=== PATIENT | female | born 1990 | race Caucasian/White ===

== ENCOUNTER 2023-03-15 11:13 | Emergency (ER) | payer MEDICAID, SELFPAY ==
[2023-03-15 11:24] VITALS: BP 122/78; PULSE 73; RESP 18; TEMP 37.2; O2SAT 99
--- NOTE | 2023-03-15 12:05 | W.ED.GENAD ---
Discharge Plan Disposition Patient Disposition: Home Condition: Stable Discharge Details Clinical Impression: Left ankle sprain, Sprain of left foot, Abrasion of left leg Primary Care Provider: Rober Kate ED Provider: Carolyn Avendaño Home Meds and New Rx's Prescriptions: Continued melatonin 10 mg capsule 10 mg PO HS PRN Patient Comments: Takes five 20 mg gummies PRN Vraylar 3 mg capsule 3 mg PO DAILY Qty: 90 0RF ProAir RespiClick 90 mcg/actuation aerosol powdr breath activated 2 inh inhalation Q6H PRN (Reason: shortness of breath or wheezing) Qty: 1 3RF gabapentin 100 mg capsule See Rx Instructions PO TID Qty: 360 3RF Rx Instructions: t1 tab QAM, Qnoon, t2 tabs QHS orally three times a day; Discharge Instructions Instructions: Ankle Sprain (ED), Foot Sprain (ED), Abrasion (ED) Additional Instructions: Your x-rays today are reassuring and show no evidence of acute fracture or dislocation. Keep wound clean and dry. Cover wound with bandage if risk of contamination or friction from clothes and at bedtime. Otherwise you can keep the wound open to air if resting at home to allow edges to dry and heal. You can keep the Ke wrap in place on your left ankle if you continue to have pain and swelling. Use the crutches as needed to help with ambulation and start to bear weight as tolerated. Follow-up with your primary care doctor in 1 week and for referral to orthopedics if your symptoms do not improve or worsen. Return to the emergency department with any worsening or new concerning symptoms. Referrals: Eduard Matthew MD [ [facility] STAFF PHYSICIAN] - Discharge Data Discharge Physician: Carolyn Avendaño Medical Decision Making 33-year-old female presents with left leg injury after tripped on a tote hitting both knees, scraping her left leg and twisting her left ankle. Tetanus not up-to-date. Denies any other injuries. Denies knee pain. Patient appears comfortable and nontoxic. She has a 6 x 2 cm superficial abrasion to her left anterior mid leg. No active bleeding. No deep wounds noted. She has tenderness to palpation to the left medial and lateral malleolus with mild edema but no deformity noted. She has tenderness to palpation to the left heel. Neurovascular intact. No deformities noted to the left lower extremity. Patient referred for x-rays which were negative. Due to location of her left anterior mid leg wound, will hold on walking boot for concern for friction with worsening of wound and potential risk for infection. Her leg wound was irrigated and covered with antibiotic ointment and nonadherent dressing. The ankle stirrup splint will also be in contact with the leg wound so we will place a left ankle Ke wrap and provide crutches. Advised on the importance of rest, ice and elevation and proper wound care. Advised to follow-up with the primary care doctor for reevaluation and with orthopedics if symptoms do not improve or worsen. Usual and customary return precautions given prior to discharge. Medical Records Medical records reviewed: Yes I reviewed the patient's medical records. Imaging Data Radiologic Study: Radiologist's impression: ?XR TIB/FIB LT CLINICAL HISTORY: ? scraped L mid leg, r/o fx. ? TECHNIQUE:? 2D digital imaging was performed. COMPARISON:? No exams were available for comparison FINDINGS: Two views: No evidence of fracture in the tibia and fibula.? Subtle deformity just below the mid aspect of the fibula may be site of prior healed fracture. Tibial plateau appears unremarkable. IMPRESSION: No acute fractures evident. XR ANKLE LT COMPLETE CLINICAL HISTORY: ? twisted L ankle, r/o fx. ? TECHNIQUE:? 2D digital imaging was performed. COMPARISON:? No exams were available for comparison FINDINGS: 3 views No evidence of acute fracture or widening of the ankle mortise.? Talar dome unremarkable.? Bone density normal.? No degenerative changes nor osseous lesions.? No soft tissue swelling. IMPRESSION: No significant osseous findings. XR FOOT LT COMPLETE CLINICAL HISTORY: ? s/p left foot, r/o fx. ? TECHNIQUE:? 2D digital imaging was performed. COMPARISON:? No exams were available for comparison FINDINGS: 3 views No evidence of acute fracture or diastasis of the Lisfranc joint.? Great toe metatarsophalangeal joint appears unremarkable.? Benign bone islands are? noted in the head-neck of the 2nd metatarsal and head of the 5th metatarsal.? No concerning osseous lesions.? No radiopaque foreign body.? Bone density is normal. IMPRESSION: No significant osseous findings. HPI General Mode of arrival: ambulatory. Date/Time Provider Initiated Documentation: 03/15/23 11:38. Limitations to Documentation: no limitations. Information obtained by: patient. HPI Narrative: Patient is a 33-year-old female who presents with left leg abrasion and left ankle and foot pain after tripped and fell on a tote outside. Patient states she tripped and scraped her leg on the tote and then twisted her ankle while wearing her work boots. She states she hit both of her knees as well but states they do not hurt and has no pain in her knees with walking. She has not taken any medication for pain. She states her tetanus is not up-to-date. She denies head injury or any other injuries. Related Data Home Medications Medication Instructions Recorded Confirmed albuterol sulfate 90 mcg/actuation 2 inh inhalation Q6H PRN shortness 02/28/23 03/15/23 breath activated powder inhaler of breath or wheezing #1 ea (ProAir RespiClick) cariprazine 3 mg capsule (Vraylar) 3 mg PO DAILY #90 caps 02/28/23 03/15/23 gabapentin 100 mg capsule See Rx Instructions PO TID #360 02/28/23 03/15/23 caps melatonin 10 mg capsule 10 mg PO HS PRN 02/28/23 03/15/23 Previous Rx's Medication Instructions Recorded albuterol sulfate 90 mcg/actuation 2 inh inhalation Q6H PRN shortness 02/28/23 breath activated powder inhaler of breath or wheezing #1 ea (ProAir RespiClick) cariprazine 3 mg capsule (Vraylar) 3 mg PO DAILY #90 caps 02/28/23 gabapentin 100 mg capsule See Rx Instructions PO TID #360 02/28/23 caps Allergies Allergy/AdvReac Type Severity Reaction Status Date / Time codeine [Codeine] Allergy Mild Hives Unverified 03/15/23 11:23 nicotine [From Nicoderm CQ] Allergy Mild Skin Unverified 03/15/23 11:23 peeling tramadol Allergy Mild Hives Unverified 03/15/23 11:23 diphenhydramine HCl AdvReac Mild Unverified 03/15/23 11:23 [From Benadryl] Sulfa (Sulfonamide AdvReac Mild Unverified 03/15/23 11:23 Antibiotics) Latuda AdvReac Severe Uncoded 03/15/23 11:23 General Stated Complaint: Orthopedic CHRISTIANO: 4 Review of Systems All systems reviewed & are unremarkable except as noted in HPI and below Constitutional Constitutional: Reports as per HPI, Denies chills and Denies fever(s) Eyes Eyes: Denies blurry vision ENT Ears, Nose, Mouth, and Throat: Denies dizziness, Denies sore throat and Denies throat swelling Cardiovascular Cardiovascular: Denies chest pain and Denies dyspnea Respiratory Respiratory: Denies cough and Denies dyspnea Gastrointestinal Gastrointestinal: Denies abdominal pain, Denies diarrhea and Denies vomiting Genitourinary Genitourinary: Denies hematuria and Denies dysuria Musculoskeletal Musculoskeletal: Denies back pain and Denies numbness Comments: Left leg, ankle and foot injury. Integumentary/Breasts Skin/Breast: Denies lesions and Denies rash Neurologic Neurologic: Denies dizziness, Denies localized weakness and Denies numbness Allergic/Immunologic Allergic/Immunologic: Denies throat swelling PFSH All Active Problems Left ankle sprain (Acute) Sprain of left foot (Acute) Abrasion of left leg (Acute) Smoker (Acute) Medical History (Updated 03/15/23 @ 13:20 by Carolyn Avendaño DO) Anxiety Asthma Gout Insomnia Schizophrenia Surgical History (Updated 03/15/23 @ 12:06 by Carolyn Avendaño DO) History of bilateral tubal ligation History of section History of hysterectomy Hx of tonsillectomy Social History (Updated 02/25/23 @ 13:09 by Eufemia Chawla) Smoking/Tobacco Use Status: Current every day Tobacco: How many years used: 17 Smokeless tobacco user: other Quit status: has quit before Smoking risk assessment performed?: Yes Drug use: Never Substance use type: marijuana Adopted: Yes Caregiver/Support person: No Foster care: No Household members: friend(s) Housing: apartment Number of Children: 1 number of grandchildren: 0 Communication Needs: None Education Level: high school Do you need help understanding health information?: Rarely 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 Pets and animals: Yes (2) Pets and animals: dog(s) Sexually active: Yes Do you think of yourself as: bisexual Current gender identity: female What is your relationship status?: never How often do you talk on the phone with friends or family?: three or more times per week How often do you get together with friends or relatives?: three or more times per week Do you belong to any clubs or organized social groups?: no Panel score (0-1 are the most socially isolated patients): 1 What type of physical activity do you participate in: none Tiffany/Faith: None Seatbelt use: always Helmet use: Yes Helmet use: sometimes Drive intox or ride w/intox warehouse driver: No Exam Const General: cooperative and no acute distress Orientation: alert, awake and oriented x3 HENMT Head: normal to inspection Mouth: oral mucosae normal Eyes General: appearance normal, both eyes and all related structures Neck Neck: normal visual inspection Resp Effort & Inspection: normal respiratory effort and able to speak in complete sentences Cardio Rate: regular rate Skin General skin exam: no rashes or lesions noted Neuro General: patient alert, patient awake and patient oriented x3 Motor: muscle tone normal throughout Extrem Upper/lower leg/hip images: 1. 6 x 2 cm superficial abrasion noted to anterior mid lower leg. There is mild surrounding edema. Other: Mild edema and tenderness to palpation to left lateral malleolus and the anterior, inferior and posterior aspect. Tenderness to palpation to the anterior and inferior aspect of the left medial malleolus. No tenderness to palpation to left fifth metatarsal. There is minimal tenderness to palpation of the left heel. Left DP/PT pulses intact. No open wounds or deformity noted. No pain with range of motion or tenderness to palpation of the left knee. No pain with range of motion of the right knee. Psych Appearance: grossly normal Affect: normal affect Course Vital Signs Vital signs: Vital Signs Temperature 98.9 F 03/15/23 11:24 Pulse 73 03/15/23 11:24 Respiratory Rate 18 03/15/23 11:24 Blood Pressure 122/78 03/15/23 11:24 Pulse Oximetry 99 03/15/23 11:24 Temperature 98.9 F 03/15/23 11:24 Temperature Source Oral 03/15/23 11:24 Pulse 73 03/15/23 11:24 Respiratory Rate 18 03/15/23 11:24 Respiratory Effort Normal, Non-Labored 03/15/23 11:22 Blood Pressure 122/78 03/15/23 11:24 Pulse Oximetry 99 03/15/23 11:24 Oxygen Delivery Method Room Air 03/15/23 11:24 Oxygen Flow Rate 0 03/15/23 11:24 PAWSS Have you Been Recently Intoxicated or Drunk Within the Last 30 days?: No Have you Ever Experienced Previous Episodes of Alcohol Withdrawal?: No Have you ever Experienced Withdrawal Seizures?: No Have you ever Experienced Delirium Tremens(DT)s?: No Have you ever undergone Alcohol Rehabilitation Treatment (i.e, inpt ot outpatient treatment programs)?: No Have you ever Experienced Blackouts?: No Have you ever Combined Alcohol with other Downers within the last 90 days?: No Have you ever Combined Alcohol with any other Substance of Abuse during the last 90 days?: No Positive Blood Alcohol level on Presentation? [PCS.BAL]: No Evidence of Increased Autonomic Activity (i.e. HR>120, tremor, sweating, agitation, nausea)?: No Result: 0
[2023-03-15] MEDS: Ibuprofen 600 MG TAB PO (12:17)
--- NOTE | 2023-03-15 12:36 | DI.RAD_ITS ---
Exam(s) XR TIB/FIB LT EXAM: XR TIB/FIB LT CLINICAL HISTORY: scraped L mid leg, r/o fx. TECHNIQUE: 2D digital imaging was performed. COMPARISON: No exams were available for comparison FINDINGS: Two views: No evidence of fracture in the tibia and fibula. Subtle deformity just below the mid aspect of the f ibula may be site of prior healed fracture. Tibial plateau appears unremarkable. IMPRESSION: No acute fractures evident. DATA REPOSITORY: RADIATION DOSE DELIVERED:
--- NOTE | 2023-03-15 12:36 | DI.RAD_ITS ---
Exam(s) XR ANKLE LT COMPLETE EXAM: XR ANKLE LT COMPLETE CLINICAL HISTORY: twisted L ankle, r/o fx. TECHNIQUE: 2D digital imaging was performed. COMPARISON: No exams were available for comparison FINDINGS: 3 views No evidence of acute fracture or widening of the ankle mortise. Talar dome unremarkable. Bone densi ty normal. No degenerative changes nor osseous lesions. No soft tissue swelling. IMPRESSION: No significant osseous findings. DATA REPOSITORY: RADIATION DOSE DELIVERED:
--- NOTE | 2023-03-15 12:36 | DI.RAD_ITS ---
Exam(s) XR FOOT LT COMPLETE EXAM: XR FOOT LT COMPLETE CLINICAL HISTORY: s/p left foot, r/o fx. TECHNIQUE: 2D digital imaging was performed. COMPARISON: No exams were available for comparison FINDINGS: 3 views No evidence of acute fracture or diastasis of the Lisfranc joint. Great toe metatarsophalangeal join t appears unremarkable. Benign bone islands are noted in the head-neck of the 2nd metatarsal and he ad of the 5th metatarsal. No concerning osseous lesions. No radiopaque foreign body. Bone density is normal. IMPRESSION: No significant osseous findings. DATA REPOSITORY: RADIATION DOSE DELIVERED:
--- NOTE | 2023-03-16 18:01 | NUR.NOTE ---
Nursing Note: Accessed chart for [facility] billing purposes.
== END 2023-03-15 13:26 | disposition home or self-care (01) ==
PROVIDERS: Emergency Provider Physician Assistant; PCP Family Medicine
DX: S93.402A Sprain of unspecified ligament of left ankle, initial encounter (principal); S93.602A Unspecified sprain of left foot, initial encounter; S80.812A Abrasion, left lower leg, initial encounter; W01.0XXA Fall on same level from slipping, tripping and stumbling without subsequent striking against object, initial encounter
CPT/HCPCS: 90471; 99284; 73590; 73610; 73630

== ENCOUNTER 2023-06-09 04:36 | Outpatient (CLI) | payer MEDICAID, SELFPAY ==
[2023-06-09] MEDS: Albuterol HFA 18 GM 200 PUFF INH IH (15:25)
[2023-06-09] MEDS: Inhaler, Assist Device 1 EACH MC (15:25)
[2023-06-09] MEDS: Methacholine 100 MG VIAL IH (15:25)
--- NOTE | 2023-06-10 15:31 | W.PFT ---
Date of service: 06/09/23 Time of Service: 13:00 Pulmonary Function Test Result Indications: Asthma Interpretation Spirometry: There is no baseline airflow limitation. There was a 21% decreased in FEV1% with administration of 2mg/mL methacholine. Lung Volumes: There is hyperinflation. Diffusion Capacity: Normal diffusion Airway Pressure: Normal airways resistance Impression Positive methacholine challenge with hyperinflation. Clinical Correlation therefore is recommended.
== END 2023-06-09 04:37 | disposition home or self-care (01) ==
LOC: RT 04:36
PROVIDERS: PCP Family Medicine; Visit Provider Family Medicine
DX: J45.909 Unspecified asthma, uncomplicated (principal)
CPT/HCPCS: 94060; 94070; 94726; 94729; 94010; J7674

== ENCOUNTER 2023-12-29 09:56 | Outpatient (CLI) | payer MEDICAID, SELFPAY ==
[2023-12-29 09:58] LABS: ESR 10 mm/hr (0-20)
[2023-12-29 10:56] LABS: Lithium < 0.2 mmol/l (0.6-1.2)
[2023-12-29 11:00] LABS: TSH (W/Ref FT4) 1.41 uIU/mL (0.36-3.74); Uric Acid 4.9 mg/dL (2.6-6.0)
[2023-12-29 11:02] LABS: C-Reactive Protein < 0.50 mg/dL (<or=0.5)
== END 2023-12-29 09:57 | disposition home or self-care (01) ==
LOC: LBO 09:57
PROVIDERS: PCP Family Medicine; Visit Provider Family Medicine
DX: M10.9 Gout, unspecified (principal); F31.81 Bipolar II disorder
CPT/HCPCS: 36415; 85652; 80178; 84443; 84550; 86140

== ENCOUNTER 2024-01-26 10:07 | Outpatient (REF) | payer MEDICAID, SELFPAY | END 2024-01-26 10:08 | disposition home or self-care (01) | LOC: LBN 10:07 | PROVIDERS: PCP Family Medicine; Visit Provider Family Medicine | DX: R82.998 Other abnormal findings in urine (principal); R10.9 Unspecified abdominal pain | CPT/HCPCS: 87086 ==

== ENCOUNTER → 2024-02-09 02:56 | Outpatient (CLI) | payer MEDICAID, SELFPAY ==
--- NOTE | 2024-02-09 07:00 | DI.CT_ITS ---
Exam(s) CT RENAL COLIC WO EXAM: CT RENAL COLIC WO CLINICAL HISTORY: H/o renal stones, hematuria currently,rt flank pain,r10.9. TECHNIQUE: Imaging Protocol: Axial computed tomography images with coronal and sagittal reformatted images were created and reviewed. COMPARISON: No exams were available for comparison FINDINGS: ABDOMEN: Lung Bases: Normal where visualized. Liver: There is fatty infiltration of the liver. The liver is enlarged. No measurable mass. Gallbladder and biliary tract: Cholelithiasis. No biliary ductal dilatation. No pericholecystic flu id or gallbladder wall thickening is apparent. Pancreas: Normal density, no abnormal calcifications or inflammatory process. Spleen: Normal. Kidneys: Normal size, contour and axis.No radiodense stones or obstructive uropathy. No masses seen. Adrenal glands: No mass is seen. Lymph nodes: Within normal limits. Abdominal Aorta: Abdominal portion non-dilated. PELVIS: Bladder:Symmetric distention, no gross wall thickening. Bowel: No obstruction or bowel wall thickening. No evidence of appendicitis. Peritoneal cavity: No ascites, collection or mesenteric inflammatory response. No free air. Reproductive organs: Status post hysterectomy. Bones: Within normal limits. There is mild sclerosis at the right sacroiliac joint which may reflect sacroiliitis. Soft Tissues: Within normal limits. IMPRESSION: 1. No evidence of nephrolithiasis or obstructive uropathy. 2. Cholelithiasis. No biliary ductal dilatation. 3. Fatty infiltration of the liver and hepatomegaly. RADIATION DOSE DELIVERED: Total DLP DATA REPOSITORY: All CT scans at this facility are submitted to the National Radiology Data Registry (NRDR) Dose Index Registry (DIR) with the [employer] (A[employer]). RADIATION OPTIMIZATION: All CT scans at this facility use at least one of these dose optimization te chniques: automated exposure control; mA and/or kV adjustment per patient size (includes targeted exa ms where dose is matched to clinical indication); or iterative reconstruction.
== END ==
PROVIDERS: PCP Family Medicine; Visit Provider Family Medicine
DX: R10.31 Right lower quadrant pain (principal); R31.9 Hematuria, unspecified; K76.0 Fatty (change of) liver, not elsewhere classified; R16.0 Hepatomegaly, not elsewhere classified; K80.20 Calculus of gallbladder without cholecystitis without obstruction; Z87.442 Personal history of urinary calculi
CPT/HCPCS: 74176

== ENCOUNTER 2024-03-01 04:50 | Outpatient (CLI) | payer MEDICAID, SELFPAY ==
[2024-03-01 13:43] LABS: ALT 23 U/L (14-59); AST 15 U/L (15-37); Albumin 4.2 g/dL (3.4-5.0); Alkaline Phosphatase 141 U/L (46-116); Anion Gap 12.6 mmol/L (3-11); BUN 10 mg/dL (7-18); Bilirubin, Total 0.5 mg/dL (0.2-1.0); CO2 22.4 mmol/L (21.0-32.0); CREATININE 0.6 mg/dL (0.55-1.02); Calcium 9.2 mg/dL (8.5-10.1); Chloride 104 mmol/L (98-107); Estimated GFR 119.97 (mL/min/1.73m2); Glucose 100 mg/dL (74-106); Potassium 3.7 mmol/L (3.5-5.1); Sodium 139 mmol/L (136-145); Total Protein 7.6 g/dL (6.4-8.2)
[2024-03-02 00:15] LABS: HBs Antibody, Qual Positive (See Note); HBs Antibody, Quant 40.5 mIU/mL (See Note); Hepatitis B Core Antibody Negative (Negative); Hepatitis B surface Ag Negative (Negative); Hepatitis C Ab w Rflx HCV PCR Negative (Negative)
[2024-03-02 14:29] LABS: ANA Interpretation Negative (Negative)
[2024-03-03 12:54] LABS: Smooth Muscle Ab Screen Negative (Negative)
[2024-03-03 14:27] LABS: Mitochondrial Ab, M2 <0.1 U
[2024-03-04 13:34] LABS: Ceruloplasmin 30.5 mg/dL
== END 2024-03-01 04:51 | disposition home or self-care (01) ==
LOC: LBO 04:51
PROVIDERS: PCP Family Medicine; Referring Provider Family Medicine; Visit Provider Family Medicine
DX: K76.0 Fatty (change of) liver, not elsewhere classified (principal)
CPT/HCPCS: 36415; 80053; 82390; 83516; 86704; 86706; 86803; 87340; 86038; 86255

== ENCOUNTER 2024-04-08 11:14 | Emergency (ER) | payer MEDICAID, SELFPAY ==
[2024-04-08 11:21] VITALS: BP 101/59; PULSE 93; RESP 18; TEMP 37.1; O2SAT 97
--- NOTE | 2024-04-08 13:00 | DI.CT_ITS ---
Exam(s) CT ABDOMEN PELVIS W EXAM: CT ABDOMEN PELVIS W CLINICAL HISTORY: fever abd pain. TECHNIQUE: Imaging Protocol: Axial computed tomography images with coronal and sagittal reformatted images were created and reviewed CONTRAST MATERIAL: Intravenous: Omnipaque 350 Contrast volume:100 ml Oral: no COMPARISON: CT CT RENAL COLIC WO from 02/09/2024 FINDINGS: ABDOMEN and PELVIS: Lung Bases: No acute findings. Liver: Normal density. No suspicious mass. Gallbladder and biliary tract: Layering stones bladder. No gallbladder wall thickening or abnormal d istension. No biliary dilation. Pancreas: Normal density. No abnormal calcifications or inflammatory process. No evidence of mass. Spleen: Normal. Kidneys: Normal size, contour and axis. No radiodense stones. No obstructive uropathy. No suspicious masses seen. Adrenal glands: No masses seen. Vasculature: Abdominal aorta non-dilated. Soft tissues: Unremarkable. Bladder: Nearly empty P no gross wall thickening. No calculi.No focal mass. Bowel: No obstruction. No bowel wall thickening. Appendix normal. Peritoneal cavity: No ascites. No focal collection. No mesenteric inflammatory response. Bones: Unremarkable for age. Reproductive organs: Status post hysterectomy. Ovaries unremarkable. Lymph nodes: No pathologically enlarged lymph nodes. IMPRESSION:: Cholelithiasis. No evidence of acute cholecystitis. No acute abnormality. RADIATION DOSE DELIVERED: Total DLP DATA REPOSITORY: All CT scans at this facility are submitted to the National Radiology Data Registry (NRDR) Dose Index Registry (DIR) with the [employer] (ACR). RADIATION OPTIMIZATION: All CT scans at this facility use at least one of these dose optimization te chniques: automated exposure control; mA and/or kV adjustment per patient size (includes targeted exa ms where dose is matched to clinical indication); or iterative reconstruction.
[2024-04-08 13:36] VITALS: BP 124/59; PULSE 98; RESP 18; TEMP 38.3; O2SAT 99
[2024-04-08] MEDS: Ketorolac 15 MG/ML VIAL IVP (13:40)
[2024-04-08] MEDS: Normal Saline 1,000 ML 1000 ML IV (13:40)
[2024-04-08 13:43] LABS: Abs Immature Grans 0.07 10^3/uL (0.0-0.06); Absolute Basophil Count 0.04 10^3/uL (0.0-0.2); Absolute Eosinophil Count 0.04 10^3/uL (0.0-0.7); Absolute Lymphocyte Count 0.48 10^3/uL (1.2-3.4); Absolute Monocyte Count 1.06 10^3/uL (0.1-0.8); Basophils % 0.3 %; Eosinophils % 0.3 %; HGB 15.1 g/dL (11.2-15.7); Immature Grans % 0.6 %; Lymphocytes % 4.1 %; MCH 31.9 pg (27.0-33.0); MCHC 34.3 % (32.0-36.0); MCV 93 fL (80-95); MPV 9.8 fL (8.0-11.0); Neutrophils % 85.7 %; Platelet Count 244 10^3/uL (130-400); RBC 4.73 10^6/uL (3.93-5.22); RDW 11.8 % (11.7-14.6); RDW-SD 40.8 fL; WBC 11.74 10^3/uL (4.4-10.8)
[2024-04-08 13:44] LABS: Absolute Neutrophil Count 10.06 10^3/uL (1.2-6.7); Bilirubin Negative (Negative); Blood Moderate (Negative); Clarity Clear (Clear); Glucose Negative (Negative); Ketones Negative (Negative); Leukocyte Esterase Negative (Negative); Nitrite Negative (Negative); Specific Gravity >= 1.030 (1.005-1.025); Urobilinogen 0.2 mg/dL (Up to 0.2); pH 5.5 (5-8)
[2024-04-08 13:54] LABS: Bacteria Rare HPF (Negative); C & S Indicated? No; Casts Negative LPF (Negative); Crystals Negative HPF (Negative); Epithelial Cells Many HPF (Negative); Mucus Heavy (Negative); WBC 0-2 HPF (0-5)
[2024-04-08 13:58] LABS: ALT 21 U/L (14-59); AST 13 U/L (15-37); Albumin 4.1 g/dL (3.4-5.0); Alkaline Phosphatase 147 U/L (46-116); Anion Gap 10.9 mmol/L (3-11); BUN 11 mg/dL (7-18); Bilirubin, Total 0.4 mg/dL (0.2-1.0); CO2 26.1 mmol/L (21.0-32.0); CREATININE 0.8 mg/dL (0.55-1.02); Calcium 8.7 mg/dL (8.5-10.1); Chloride 101 mmol/L (98-107); Estimated GFR 98.48 (mL/min/1.73m2); Glucose 108 mg/dL (74-106); Lipase 20 U/L (16-77); Potassium 3.9 mmol/L (3.5-5.1); Sodium 138 mmol/L (136-145); Total Protein 7.6 g/dL (6.4-8.2)
[2024-04-08] MEDS: Normal Saline - Diluent 50 ML VIAL IJ (14:30)
[2024-04-08] MEDS: Omnipaque 350 MG/ML 100 ML BTL IJ (14:31)
[2024-04-08 14:33] LABS: Influenza A PCR Negative (Negative); Influenza B PCR Negative (Negative); RSV PCR Negative (Negative)
[2024-04-08 14:44] LABS: Source Nasopharynx
[2024-04-08 14:45] LABS: COVID-19 PCR Positive (Negative)
--- NOTE | 2024-04-08 15:01 | ED.GENADUL_ITS ---
Discharge Plan Disposition Patient Disposition: Home Discharge Details Clinical Impression: COVID, Gallstones Primary Care Provider: Rober Kate ED Provider: Tomasz Dc Home Meds and New Rx's Prescriptions: Continued quetiapine 50 mg tablet 50 mg PO QHS Qty: 90 1RF gabapentin 100 mg capsule See Rx Instructions PO TID Qty: 360 3RF Rx Instructions: t1 tab QAM, Qnoon, t2 tabs QHS orally three times a day; albuterol sulfate [Ventolin HFA] 90 mcg/actuation HFA aerosol inhaler 2 puff inhalation QID PRN (Reason: shortness of breath or wheezing) Qty: 8.5 3RF famotidine 20 mg tablet 20 mg PO BID PRN (Reason: reflux) Qty: 180 3RF Discharge Instructions Instructions: Gallstones (ED), COVID-19 (Coronavirus Disease 2019) (ED) Additional Instructions: At this time I feel that your symptoms are more consistent with COVID illness. It is important that you stay well-hydrated, get plenty of rest, and quarantine for the next 5 days and then if you are fever free and symptoms are improving you may stop quarantine but it is recommended that you wear a mask for an additional 5 days to reduce spread of illness to others. If you have any significant or severe worsening of symptoms feel free to return the emergency department for reassessment otherwise follow-up with your primary care provider. As noted your CT imaging did show some gallstones but I do not feel that you have an infected gallbladder at this time. If you have any severe worsening of your abdominal pain, severe uncontrollable vomiting or any other abdominal concerns you may also feel free to return for reassessment otherwise make sure that you mention the finding of gallstones to your GI specialist when you see them on April 24. Stand Alone Forms: Work Release Referrals: Rober Kate DO [Primary Care Provider] - (As needed for reassessment) HPI General Mode of arrival: ambulatory . Date/Time Provider Initiated Documentation: 04/08/24 13:06 . Limitations to Documentation: no limitations . Information obtained by: patient . History of Present Illness 34 year old F presents to the emergency department with the chief complaint of Abdominal pain, fever chills, described as moderate, Patient started experiencing this hour(s) (3) and it has been constant. No relieving factors improve symptom(s), No exacerbating factors reported . Patient did receive the following treatments prior to arrival, other (Acetaminophen) Related Data Home Medications Medication Instructions Recorded Confirmed gabapentin 100 mg capsule See Rx Instructions PO TID #360 02/28/23 04/08/24 caps albuterol sulfate 90 mcg/actuation 2 puff inhalation QID PRN 06/30/23 04/08/24 aerosol inhaler (Ventolin HFA) shortness of breath or wheezing #8.5 grams quetiapine 50 mg tablet 50 mg PO QHS #90 tabs 01/26/24 04/08/24 famotidine 20 mg tablet 20 mg PO BID PRN reflux #180 tabs 02/23/24 04/08/24 Previous Rx's Medication Instructions Recorded gabapentin 100 mg capsule See Rx Instructions PO TID #360 02/28/23 caps albuterol sulfate 90 mcg/actuation 2 puff inhalation QID PRN 06/30/23 aerosol inhaler (Ventolin HFA) shortness of breath or wheezing #8.5 grams quetiapine 50 mg tablet 50 mg PO QHS #90 tabs 01/26/24 famotidine 20 mg tablet 20 mg PO BID PRN reflux #180 tabs 02/23/24 Allergies Allergy/AdvReac Type Severity Reaction Status Date / Time codeine [Codeine] Allergy Mild Hives Unverified 04/08/24 11:23 nicotine [From Nicoderm CQ] Allergy Mild Skin Unverified 04/08/24 11:23 peeling tramadol Allergy Mild Hives Unverified 04/08/24 11:23 diphenhydramine HCl AdvReac Mild Other (See Unverified 04/08/24 11:23 [From Benadryl] Comment) Sulfa (Sulfonamide AdvReac Mild Other (See Unverified 04/08/24 11:23 Antibiotics) Comment) Latuda AdvReac Severe Other (See Uncoded 04/08/24 11:23 Comment) General Stated Complaint: Fever CHRISTIANO: 3 Review of Systems Constitutional Constitutional: Reports chills, Reports fatigue, Reports fever(s), Reports headache(s) and Reports malaise ENT Ears, Nose, Mouth, and Throat: Reports headache(s), Reports nasal congestion and Denies sore throat Cardiovascular Cardiovascular: Denies chest pain and Denies dyspnea Respiratory Respiratory: Reports cough and Denies dyspnea Gastrointestinal Gastrointestinal: Reports abdominal pain, Denies diarrhea, Reports nausea and Denies vomiting Genitourinary Genitourinary: Denies dysuria Musculoskeletal Musculoskeletal: Reports myalgias Integumentary/Breasts Skin/Breast: Denies rash Neurologic Neurologic: Reports headache(s) Endocrine Endocrine: Reports fatigue Exam Const General: cooperative Orientation: alert, awake and oriented x3 HENMT Ears: hearing grossly normal bilaterally and external ears normal General nose exam: external nose normal and other (Audible nasal congestion) Resp Effort & Inspection: normal respiratory effort and able to speak in complete sentences Auscultation: clear to auscultation bilaterally Cardio Rate: regular rate Rhythm: regular rhythm Heart Sounds: S1 normal and S2 normal GI Palpation: soft, not firm, no guarding, no masses, no pulsatile masses, not rigid, no splenomegaly and tender (Right upper quadrant) in the RUQ and Khan's sign positive (Slight) Auscultation: normal bowel sounds Back/Spine/Pelvis Back: no CVA tenderness Neuro General: patient alert, patient awake, patient oriented x3, gait normal and moves all extremities Course Vital Signs Vital signs: Vital Signs Temperature 37.1 C 04/08/24 11:21 Pulse 93 H 04/08/24 11:21 Respiratory Rate 18 04/08/24 11:21 Blood Pressure 101/59 L 04/08/24 11:21 Pulse Oximetry 97 04/08/24 11:21 Temperature 38.3 C H 04/08/24 13:36 Temperature Source Temporal Artery Scan 04/08/24 13:36 Pulse 98 H 04/08/24 13:36 Respiratory Rate 18 04/08/24 13:36 Blood Pressure 124/59 L 04/08/24 13:36 Blood Pressure Position Sitting 04/08/24 11:21 Pulse Oximetry 99 04/08/24 13:36 Oxygen Delivery Method Room Air 04/08/24 11:21 Oxygen Flow Rate 0 04/08/24 11:21 Pain Level 7 04/08/24 11:21 Lab/Test Results Lab/Test Results: Laboratory Tests Range/Units 04/08/24 04/08/24 13:30 13:40 WBC (4.4-10.8) 10^3/uL 11.74 H RBC (3.93-5.22) 10^6/uL 4.73 Hgb (11.2-15.7) g/dL 15.1 Hct (36.0-46.0) % 44.0 MCV (80-95) fL 93 MCH (27.0-33.0) pg 31.9 MCHC (32.0-36.0) % 34.3 RDW (11.7-14.6) % 11.8 Plt Count (130-400) 10^3/uL 244 MPV (8.0-11.0) fL 9.8 Immature Gran % % 0.6 Neutrophils % % 85.7 Lymphocytes % % 4.1 Monocytes % % 9.0 Eosinophils % % 0.3 Basophils % % 0.3 Nucleated RBC % (0.0-0.3) % 0.0 Absolute Neutrophils (1.2-6.7) 10^3/uL 10.06 H Absolute Lymphocytes (1.2-3.4) 10^3/uL 0.48 L Absolute Monocytes (0.1-0.8) 10^3/uL 1.06 H Absolute Eosinophils (0.0-0.7) 10^3/uL 0.04 Absolute Basophils (0.0-0.2) 10^3/uL 0.04 Sodium (136-145) mmol/L 138 Potassium (3.5-5.1) mmol/L 3.9 Chloride (98-107) mmol/L 101 Carbon Dioxide (21.0-32.0) mmol/L 26.1 Anion Gap (3-11) mmol/L 10.9 BUN (7-18) mg/dL 11 Creatinine (0.55-1.02) mg/dL 0.8 Est GFR (CKD-EPI 2020) (mL/min/1.73m2) 98.48 Glucose (74-106) mg/dL 108 H Calcium (8.5-10.1) mg/dL 8.7 Magnesium (1.8-2.4) mg/dL 2.0 Total Bilirubin (0.2-1.0) mg/dL 0.4 AST (15-37) U/L 13 L ALT (14-59) U/L 21 Alkaline Phosphatase (46-116) U/L 147 H Total Protein (6.4-8.2) g/dL 7.6 Albumin (3.4-5.0) g/dL 4.1 Lipase (16-77) U/L 20 Urine Color (Yellow) Yellow Urine Clarity (Clear) Clear Urine pH (5-8) 5.5 Ur Specific [place] (1.005-1.025) >= 1.030 H Urine Protein (Neg-Trace) mg/dL Negative Urine Ketones (Negative) mg/dL Negative Urine Blood (Negative) Moderate H Urine Nitrite (Negative) Negative Urine Bilirubin (Negative) Negative Urine Urobilinogen (Up to 0.2) mg/dL 0.2 Ur Leukocyte Esterase (Negative) Negative Urine RBC (0-2) HPF 5-10 H Urine WBC (0-5) HPF 0-2 Ur Epithelial Cells (Negative) HPF Many Urine Crystals (Negative) HPF Negative Urine Bacteria (Negative) HPF Rare Urine Casts (Negative) LPF Negative Urine Mucus (Negative) Heavy Ur Culture Indicated? No Urine Glucose (Negative) mg/dL Negative COVID-19 Source Nasopharynx SARS-CoV-2 (PCR) (Negative) Positive A Influenza Type A (PCR) (Negative) Negative Influenza Type B (PCR) (Negative) Negative RSV (PCR) (Negative) Negative Medical Decision Making Patient presenting to the emergency department for chief complaint of fever chills body aches abdominal pain and nausea. Patient reports approximately a week ago she was seen by her primary care provider for abdominal pain and discomfort. She is pending a CT of her abdomen for concern of gallbladder disease or appendicitis. Patient states that she had been doing fine up until this morning when she had sudden onset of bodyaches, slight nasal congestion, fever abdominal discomfort and nausea. Patient denies any vomiting, chest pain shortness of breath or coughing. Physical exam shows audible nasal congestion, normal cardiac and respiratory exam, overall ill appearance, right upper quadrant tenderness to palpation that is slight with slight Khan sign. Exam is otherwise noncontributory. Patient did take some Tylenol this morning at 820 but uses this very rarely due to having fatty liver disease. Due to endometriosis she did have a hysterectomy, other contributing medical history is anxiety, schizophrenia, does have history of tubal ligation tonsillectomy and C- section. Will plan on checking labs, giving IV fluids, and will give ketorolac. Patient was tested with antigen testing for COVID and flu and was negative but given the timeframe and other symptoms that are not abdominal will perform PCR. Reviewed patient's labs and she does have slight leukocytosis, CMP shows low AST with slight elevation of alk phos but lipase is within normal limits, normal bilirubin, normal ALT, urine does show high specific gravity and some blood present but otherwise nondiagnostic. Patient's PCR was positive for COVID, negative for influenza or RSV. CT imaging was still performed and shows gallstones but is otherwise unremarkable. I do not feel that patient has acute cholecystitis but that her symptoms are more consistent with the positive COVID result. Discussed conservative management with patient along with return and follow-up precautions. Patient was informed of this inform her GI specialist of her findings of gallstones on imaging today. After discussion of diagnosis and plan of care patient has no further needs, questions, or concerns and states clear understanding to return to the emergency department for any worsening symptoms. This documentation was generated using [employer] system, please disregard any oddities of phrase or misspellings. Quality:SDOH Health Related Social Needs: No Data to Display PFSH All Active Problems Gallstones (Acute) COVID (Acute) [place] of foot (Acute) RLQ abdominal pain (Acute) RUQ pain (Acute) GERD (gastroesophageal reflux disease) (Chronic) Fatty liver (Acute) Black stool (Acute) Bipolar II disorder (Acute) Intermittent asthma (Acute) Abrasion of left leg (Acute) Smoker (Acute) Medical History Anxiety Insomnia Asthma Gout Schizophrenia Surgical History History of bilateral tubal ligation History of hysterectomy Hx of tonsillectomy History of section Social History Smoking/Tobacco Use Status: Current every day Tobacco: How many years used: 17 Smokeless tobacco user: other Quit status: has quit before Smoking risk assessment performed?: Yes Alcohol Intake: former Drug use: Never Substance use type: marijuana Adopted: Yes Caregiver/Support person: No Foster care: No Household members: friend(s) Housing: apartment Number of Children: 1 number of grandchildren: 0 Communication Needs: None Education Level: high school Do you need help understanding health information?: Rarely 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 Pets and animals: Yes (2) Pets and animals: dog(s) Sexually active: Yes Do you think of yourself as: bisexual Current gender identity: female What is your relationship status?: never How often do you talk on the phone with friends or family?: three or more times per week How often do you get together with friends or relatives?: three or more times per week Do you belong to any clubs or organized social groups?: no Panel score (0-1 are the most socially isolated patients): 1 What type of physical activity do you participate in: none Tiffany/Voodoo: None Seatbelt use: always Helmet use: Yes Helmet use: sometimes Drive intox or ride w/intox explosives truck driver: No
--- NOTE | 2024-04-08 15:30 | DI.[facility]_ITS ---
PROCEDURE INFORMATION: Exam: CT Abdomen And Pelvis With Contrast Exam date and time: 04/08/2024 2:29 PM Age: 34 years old Clinical indication: Other: Fever, stomach pain TECHNIQUE: Imaging protocol: Computed tomography of the abdomen and pelvis with contrast. Contrast material: 350; Contrast volume: 100 ml; Contrast route: INTRAVENOUS (IV); COMPARISON: CT RENAL COLIC WO 02/09/2024 11:03 AM FINDINGS: Lungs: Bibasilar atelectasis Liver: Normal. No mass. Gallbladder and bile ducts: Multiple gallstones in the gallbladder.. Pancreas: Normal. No ductal dilation. Spleen: Normal. No splenomegaly. Adrenal glands: Normal. No mass. Kidneys and ureters: There is no evidence of renal or ureteral calcifications.. Stomach and bowel: Unremarkable. No obstruction. No mucosal thickening. Appendix: Normal appendix. Intraperitoneal space: Unremarkable. No free air. No significant fluid collection. Vasculature: Unremarkable. No abdominal aortic aneurysm. Lymph nodes: Unremarkable. No enlarged lymph nodes. Urinary bladder: Unremarkable as visualized. Reproductive: Unremarkable as visualized. Bones/joints: Unremarkable. No acute fracture. Soft tissues: Unremarkable. IMPRESSION: 1. Multiple gallstones in the gallbladder.. 2. There is no evidence of renal or ureteral calcifications.. 3. Normal appendix. Dictated and Authenticated by: Sachin Arvizu MD. Ordering:MARLYN Tolbert MD
== END 2024-04-08 15:49 | disposition home or self-care (01) ==
PROVIDERS: Emergency Provider Nurse Practitioner Family; PCP Family Medicine
DX: O07.1 Delayed or excessive hemorrhage following failed attempted termination of pregnancy (principal); K80.20 Calculus of gallbladder without cholecystitis without obstruction; Z90.710 Acquired absence of both cervix and uterus
CPT/HCPCS: 80053; 83690; 87426; 87637; 96361; 96374; 99285; 74177; 81003; 81015; 83735; 85025; 99284; J1885; J3490

== ENCOUNTER 2025-10-04 12:15 | Outpatient (REF) | payer SELFPAY ==
[2025-10-04 14:29] LABS: Abs Immature Grans 0.05 10^3/uL (0.0-0.06); HCT 44.5 % (36.0-46.0); HGB 15.6 g/dL (11.2-15.7); Immature Grans % 0.5 %; MCH 32.1 pg (27.0-33.0); MCHC 35.1 % (32.0-36.0); MCV 92 fL (80-95); MPV 10.3 fL (8.0-11.0); Platelet Count 311 10^3/uL (130-400); RBC 4.86 10^6/uL (3.93-5.22); RDW 11.6 % (11.7-14.6); RDW-SD 39.5 fL; WBC 10.69 10^3/uL (4.4-10.8)
[2025-10-04 15:22] LABS: ALT 12 U/L (10-49); AST 14 U/L (<34); Albumin 4.7 g/dL (3.4-5.0); Alkaline Phosphatase 94 U/L (46-116); Anion Gap 6.2 mmol/L (3-11); BUN 12 mg/dL (9-23); Bilirubin, Total 0.40 mg/dL (0.2-1.2); CO2 24.8 mmol/L (20.0-31.0); Calcium 9.3 mg/dL (8.3-10.6); Chloride 109 mmol/L (98-107); Glucose 103 mg/dL (74-106); Potassium 4.2 mmol/L (3.5-5.1); Sodium 140 mmol/L (136-145); Total Protein 7.1 g/dL (5.7-8.2)
[2025-10-04 15:23] LABS: Lipase 26 U/L (<53)
== END 2025-10-04 12:16 | disposition home or self-care (01) ==
LOC: LBN 12:15
PROVIDERS: PCP Family Medicine; Visit Provider Physician Assistant Medical
DX: R11.2 Nausea with vomiting, unspecified (principal)
CPT/HCPCS: 80053; 83690; 85025

== ENCOUNTER 2025-10-05 05:56 | Emergency (ER) | payer SELFPAY ==
[2025-10-05 05:59] VITALS: BP 123/73; PULSE 82; RESP 19; TEMP 36.6; O2SAT 99
[2025-10-05 06:05] VITALS: BP 123/77; PULSE 84; RESP 22; TEMP 36.6; O2SAT 97
--- NOTE | 2025-10-05 06:15 | RT.EKG_ITS ---
APPROVED REPORT Exam: Resting ECG Reason for Exam: epigastric pain Patient Location: E HR:67 bpm ECG Measurements Heart Rate 67 AXIS ME 152 P 68 QRSd 70 QRS 61 QT 385 T 62 QTc 407 Conclusion Sinus rhythm...normal P axis, V-rate 60- [address] segment or T wave abnormalities to suggest occlusive RI
--- NOTE | 2025-10-05 06:30 | DI.CT_ITS ---
Exam(s) CT ABDOMEN PELVIS W EXAM: CT ABDOMEN PELVIS W CLINICAL HISTORY: epigastric pain and tenderness, N/V/D. TECHNIQUE: Imaging Protocol: Axial computed tomography images with coronal and sagittal reformatted images were created and reviewed CONTRAST MATERIAL: Intravenous: Omnipaque 350 Contrast volume:75 ml Oral: no COMPARISON: No exams were available for comparison FINDINGS: ABDOMEN and PELVIS: Lung Bases: No acute findings. Liver: Mildly enlarged. Normal density, improvement from prior. No suspicious mass. Gallbladder and biliary tract: Cholecystectomy. No biliary dilation. Pancreas: Normal density. No abnormal calcifications or inflammatory process. No evidence of mass. Spleen: Normal. Kidneys: Normal size, contour and axis. No radiodense stones. No obstructive uropathy. No suspicious masses seen. Adrenal glands: No masses seen. Vasculature: Abdominal aorta non-dilated. Soft tissues: Unremarkable. Bladder: No gross wall thickening. No calculi.No focal mass. Bowel: There is some high density ingested material in the stomach. There is some wall thickening of the antrum which could indicate gastritis. No evidence of perforated ulcer. No obstruction. No bowel wall thickening. Appendix normal. Normal quantity of stool. Peritoneal cavity: No ascites. No focal collection. No mesenteric inflammatory response. No free air. Bones: Right osteitis condensans ilei. No suspicious lesions. Reproductive organs: Hysterectomy. Lymph nodes: No pathologically enlarged lymph nodes. IMPRESSION:: Mild wall thickening of the stomach could indicate gastritis. The preliminary [facility] report was reviewed. RADIATION DOSE DELIVERED: Total DLP DATA REPOSITORY: All CT scans at this facility are submitted to the National Radiology Data Registry (NRDR) Dose Index Registry (DIR) with the [employer] (ACR). RADIATION OPTIMIZATION: All CT scans at this facility use at least one of these dose optimization techniques: automated exposure control; mA and/or kV adjustment per patient size (includes targeted exams where dose is matched to clinical indication); or iterative reconstruction.
--- NOTE | 2025-10-05 06:34 | W.ED.GENAD ---
Discharge Plan Discharge Details Chief Complaint: Abd Prob Clinical Impression: Acute epigastric pain, Vomiting Primary Care Provider: Rober Kate ED Provider: Stephanie Wei Home Meds and New Rx's Prescriptions: No Action albuterol sulfate [Ventolin HFA] 90 mcg/actuation HFA aerosol inhaler 2 puff inhalation QID PRN (Reason: shortness of breath or wheezing) Qty: 8.5 3RF famotidine 20 mg tablet 20 mg PO BID PRN (Reason: reflux) Qty: 180 3RF lamotrigine 100 mg tablet 100 mg PO DAILY Qty: 90 3RF cyclobenzaprine 5 mg tablet 5 mg PO TID PRN (Reason: muscle spasm) Qty: 30 3RF omeprazole 40 mg capsule,delayed release(DR/EC) 40 mg PO QPM Rx Instructions: Take one 40 mg capsule 30 minutes before the evening meal gabapentin 100 mg capsule See Rx Instructions PO TID Qty: 360 3RF Rx Instructions: t1 tab QAM, Qnoon, t2 tabs QHS orally three times a day; colestipol 1 gram tablet 2 g PO BID HPI General Mode of arrival: ambulatory. Date/Time Provider Initiated Documentation: 10/05/25 05:58. Limitations to Documentation: no limitations. Information obtained by: patient. HPI Narrative: 35yo F with hx NAFD, GERD, prior cholecystectomy, anal fissures, presenting for N/V/D and epigastriac pain x 4 days. Seen UC yesterday for these symptoms and prescribed zofran. No further further vomiting with zofran, diarrrhea and abdominal pain persist. Pain is mostly dull, 'feels like a pit', burning, constant, but occasionally become more severe and sharp. Nothing seems to make the pain better or worse. Has not taken anything for pain today (earlier had tried NSAID with no improvement). When she was vomiting it was non-bloody and nonbilious. Diarrhea is watery, ~6 times a day, and dark with occasional streaks of blood. She does have some blood in her stool chronically with her anal fissures and this not worse than usual. Subjective fevers at home; does not have thermometer. She is otherwise in her usual state of health with no rash, chest pain, shortness of breath. lightheadedness, syncope, or other concerns. Related Data Home Medications Medication Instructions Recorded Confirmed famotidine 20 mg tablet 20 mg PO BID PRN reflux #180 tabs 02/23/24 10/05/25 Held on 05/14/24. Instructions: Changed by Provider omeprazole 40 mg capsule,delayed 40 mg PO QPM GERD 05/14/24 10/05/25 release Held on 10/05/25. Instructions: Pt Stopped/Never Started gabapentin 100 mg capsule See Rx Instructions PO TID #360 06/11/24 10/05/25 Held on 10/05/25. caps Instructions: Pt Stopped/Never Started colestipol 1 gram tablet 2 g PO BID 08/23/24 10/05/25 Held on 10/05/25. Instructions: Prescription Finished albuterol sulfate 90 mcg/actuation 2 puff inhalation QID PRN 10/19/24 10/05/25 aerosol inhaler (Ventolin HFA) shortness of breath or wheezing Held on 10/05/25. #8.5 grams Instructions: Prescription Finished cyclobenzaprine 5 mg tablet 5 mg PO TID PRN muscle spasm #30 12/06/24 10/05/25 Held on 10/05/25. tabs Instructions: Pt Stopped/Never Started lamotrigine 100 mg tablet 100 mg PO DAILY #90 tabs 12/06/24 10/05/25 Held on 10/05/25. Instructions: Pt Stopped/Never Started Previous Rx's Medication Instructions Recorded famotidine 20 mg tablet 20 mg PO BID PRN reflux #180 tabs 02/23/24 Held on 05/14/24. Instructions: Changed by Provider gabapentin 100 mg capsule See Rx Instructions PO TID #360 06/11/24 Held on 10/05/25. caps Instructions: Pt Stopped/Never Started albuterol sulfate 90 mcg/actuation 2 puff inhalation QID PRN 10/19/24 aerosol inhaler (Ventolin HFA) shortness of breath or wheezing Held on 10/05/25. #8.5 grams Instructions: Prescription Finished cyclobenzaprine 5 mg tablet 5 mg PO TID PRN muscle spasm #30 12/06/24 Held on 10/05/25. tabs Instructions: Pt Stopped/Never Started lamotrigine 100 mg tablet 100 mg PO DAILY #90 tabs 12/06/24 Held on 10/05/25. Instructions: Pt Stopped/Never Started Allergies Allergy/AdvReac Type Severity Reaction Status Date / Time codeine (Codeine) Allergy Mild Hives Unverified 10/05/25 06:04 nicotine (From Nicoderm CQ) Allergy Mild Skin Unverified 10/05/25 06:04 peeling tramadol Allergy Mild Hives Unverified 10/05/25 06:04 diphenhydramine HCl (From AdvReac Mild Other (See Unverified 10/05/25 06:04 Benadryl) Comment) Sulfa (Sulfonamide AdvReac Mild Other (See Unverified 10/05/25 06:04 Antibiotics) Comment) lurasidone (From Latuda) AdvReac Other (See Verified 10/05/25 06:04 Comment) General Stated Complaint: Abd Prob CHRISTIANO: 3 Review of Systems Narrative: see HPI Exam Narrative Exam Narrative: General: Alert, well appearing, well nourished, in no acute distress. Head: Normocephalic, atraumatic Neck: Trachea midline, Neck supple. ENT: MMM. No oropharygeal lesions or exudate. Cardiac: RRR, no murmurs appreciated Resp: No respiratory distress. CTAB. Abd: Soft, non-distended. Epigastriac tenderness with no rebound or guarding. : No suprapubic tenderness. No CVA tenderness. Rectal: Brown stool, no gross blood. Extremities: No deformities. No peripheral edema. Neurologic: GCS 15. Moves all extremities freely against gravity Course Vital Signs Vital signs: Vital Signs Temperature 36.6 C 10/05/25 05:59 Pulse 82 10/05/25 05:59 Respiratory Rate 19 10/05/25 05:59 Blood Pressure 123/73 10/05/25 05:59 Pulse Oximetry 99 10/05/25 05:59 Temperature 36.6 C 10/05/25 06:05 Temperature Source Oral 10/05/25 06:05 Pulse 84 10/05/25 06:05 Respiratory Rate 22 10/05/25 06:05 Blood Pressure 123/77 10/05/25 06:05 Blood Pressure Position Sitting 10/05/25 06:05 Pulse Oximetry 97 10/05/25 06:05 Oxygen Delivery Method Room Air 10/05/25 06:05 Oxygen Flow Rate 0 10/05/25 05:59 Pain Level 10 10/05/25 06:05 Medical Decision Making 35yo F with hx NAFD, GERD, prior cholecystectomy, anal fissures, presenting for N/V/D and epigastric pain x 4 days. Seen UC yesterday for these symptoms and prescribed zofran. No further further vomiting with zofran, diarrhea and abdominal pain persist. Diarrhea is watery, ~6 times a day, and dark with occasional streaks of blood; she does have some blood in her stool chronically with her anal fissures and this not worse than usual. Vital signs reassuring on arrival, afebrile, non-toxic appearing. Appears well hydrated. Epigastric tenderness on exam, no other abdominal tenderness. No gross blood on rectal exam. No lower abdominal pain to suggest ovarian or pelvic pathology. Has had cholecystectomy. Concern for peptic ulcer disease, pancreatitis, gastritis, gastroenteritis, liver disease. Less likely cardiac pathology (will screen with EKG/troponin). Will treat with carafate and GI cocktail while awaiting results of workup. -EKG NSR, appropriate intervals, no ST segment or T wave abnormalities to suggest occlusive AL -Labs reviewed as below, CBC reassuring with no leukocytosis or anemia, CMP with no actionable abnormalities, Mg normal, lipase not suggestive of pancreatitis, lactate normal, troponin normal in the setting of several days of constant pain (would not further pursue ACS/trend troponin). Will be signed out to oncoming physican; plan to followup remainder of labs, urine, and CT imaging. Disposition pending results and clinical course. Lab Data Lab results reviewed: Yes I reviewed the patient's lab results. Labs: Laboratory Tests Range/Units 10/05/25 06:16 WBC (4.4-10.8) 10^3/uL 9.89 RBC (3.93-5.22) 10^6/uL 4.79 Hgb (11.2-15.7) g/dL 15.2 Hct (36.0-46.0) % 43.6 MCV (80-95) fL 91 MCH (27.0-33.0) pg 31.7 MCHC (32.0-36.0) % 34.9 RDW (11.7-14.6) % 11.6 L Plt Count (130-400) 10^3/uL 308 MPV (8.0-11.0) fL 10.1 Immature Gran % % 0.3 Neutrophils % % 63.5 Lymphocytes % % 26.3 Monocytes % % 7.0 Eosinophils % % 2.2 Basophils % % 0.7 Nucleated RBC % (0.0-0.3) % 0.0 Absolute Neutrophils (1.2-6.7) 10^3/uL 6.28 Absolute Lymphocytes (1.2-3.4) 10^3/uL 2.60 Absolute Monocytes (0.1-0.8) 10^3/uL 0.69 Absolute Eosinophils (0.0-0.7) 10^3/uL 0.22 Absolute Basophils (0.0-0.2) 10^3/uL 0.07 VBG Lactate (<or=2.0) mmol/L 1.4 Sodium (136-145) mmol/L 141 Potassium (3.5-5.1) mmol/L 3.8 Chloride (98-107) mmol/L 109 H Carbon Dioxide (20.0-31.0) mmol/L 23.2 Anion Gap (3-11) mmol/L 8.8 BUN (9-23) mg/dL 11 Creatinine (0.55-1.02) mg/dL 0.54 L Est GFR (CKD-EPI 2020) (mL/min/1.73m2) 127.28 Glucose (74-106) mg/dL 122 H Calcium (8.3-10.6) mg/dL 9.1 Magnesium (1.6-2.6) mg/dL 2.0 Total Bilirubin (0.2-1.2) mg/dL 0.70 AST (<34) U/L 15 ALT (10-49) U/L 10 Alkaline Phosphatase (46-116) U/L 94 Troponin I (<35) ng/L < 3 Total Protein (5.7-8.2) g/dL 7.1 Albumin (3.4-5.0) g/dL 4.6 Lipase (<53) U/L 34 Serum HCG, Qual Negative Quality:SDOH Health Related Social Needs: Health related social needs house/econ circumstance Health related social needs details LACK OF INSURANCE- UNABLE TO AFFORD PERSCRIPTIONS PFSH All Active Problems Vomiting (Acute) Acute epigastric pain (Acute) Sebaceous cyst (Acute) Bile acid malabsorption syndrome (Chronic) 10/15/24 - [facility], maintained on 2 mg BID colestipol with room to increase to 5 mg BID if needed Nonalcoholic fatty liver disease (Acute) Anal fissure (Acute ~07/2024) Cholelithiasis (Acute) Biliary colic (Acute) COVID (Acute) [place] of foot (Acute) RLQ abdominal pain (Acute) RUQ pain (Acute) GERD (gastroesophageal reflux disease) (Chronic) Fatty liver (Acute) Black stool (Acute) Hematochezia - [facility] Bipolar II disorder (Acute) Intermittent asthma (Acute) Abrasion of left leg (Acute) Smoker (Acute) Medical History (Updated 10/05/25 @ 07:06 by Stephanie Wei MD) Anxiety Insomnia Asthma Gout Schizophrenia Surgical History (Updated 08/10/24 @ 13:30 by Eda Lowry RN) History of colonoscopy 08/09/24-[facility]-Dr Ray-family hx colon CA History of laparoscopic cholecystectomy (06/21/24) Deuce Salmeron MD @ [facility] History of bilateral tubal ligation History of hysterectomy Hx of tonsillectomy History of section Social History Smoking/Tobacco Use Status: Current every day Tobacco Type: cigarettes Tobacco: How many years used: 17 Smokeless tobacco user: other Quit status: has quit before Smoking risk assessment performed?: Yes Alcohol Intake: former Drug use: Daily Substance use type: marijuana Adopted: Yes Caregiver/Support person: No Foster care: No Household members: friend(s) Housing: apartment Number of Children: 1 number of grandchildren: 0 Communication Needs: None Education Level: high school Do you need help understanding health information?: Rarely current occupation: [employer] Pets and animals: Yes (2) Pets and animals: dog(s) Sexually active: Yes Do you think of yourself as: bisexual Current gender identity: female What is your relationship status?: never How often do you talk on the phone with friends or family?: three or more times per week How often do you get together with friends or relatives?: three or more times per week Do you belong to any clubs or organized social groups?: no Panel score (0-1 are the most socially isolated patients): 1 What type of physical activity do you participate in: none Tiffany/Roman Catholic: None Seatbelt use: always Helmet use: Yes Helmet use: sometimes Drive intox or ride w/intox otr flatbed driver: No Do you feel safe at home: Yes Do you feel safe in your relationship?: Yes
[2025-10-05 06:42] LABS: Abs Immature Grans 0.03 10^3/uL (0.0-0.06); HCT 43.6 % (36.0-46.0); HGB 15.2 g/dL (11.2-15.7); Immature Grans % 0.3 %; MCH 31.7 pg (27.0-33.0); MCHC 34.9 % (32.0-36.0); MCV 91 fL (80-95); MPV 10.1 fL (8.0-11.0); Platelet Count 308 10^3/uL (130-400); RBC 4.79 10^6/uL (3.93-5.22); RDW 11.6 % (11.7-14.6); RDW-SD 38.9 fL; WBC 9.89 10^3/uL (4.4-10.8)
[2025-10-05 06:56] LABS: HCG Qual (Serum) Negative
[2025-10-05 06:58] LABS: Lipase 34 U/L (<53)
[2025-10-05 06:59] LABS: Magnesium 2.0 mg/dL (1.6-2.6)
[2025-10-05] MEDS: Normal Saline - Diluent 50 ML VIAL IJ (06:59)
[2025-10-05] MEDS: Omnipaque 350 MG/ML 100 ML BTL IJ (06:59)
[2025-10-05 07:00] LABS: ALT 10 U/L (10-49); AST 15 U/L (<34); Albumin 4.6 g/dL (3.4-5.0); Alkaline Phosphatase 94 U/L (46-116); Anion Gap 8.8 mmol/L (3-11); BUN 11 mg/dL (9-23); Bilirubin, Total 0.70 mg/dL (0.2-1.2); CO2 23.2 mmol/L (20.0-31.0); Calcium 9.1 mg/dL (8.3-10.6); Chloride 109 mmol/L (98-107); Glucose 122 mg/dL (74-106); Potassium 3.8 mmol/L (3.5-5.1); Sodium 141 mmol/L (136-145); Total Protein 7.1 g/dL (5.7-8.2)
[2025-10-05] MEDS: Normal Saline Flush 10 ML SYR IVP ×3 (07:00→07:41)
[2025-10-05 07:02] LABS: Troponin I < 3 ng/L (<35)
[2025-10-05] MEDS: MYLANTA 30 ML, LIDOCAINE 2% VISCOUS UD 15 ML PO (07:03)
[2025-10-05] MEDS: Sucralfate 1 GM TAB PO (07:03)
[2025-10-05] MEDS: Pantoprazole 40 MG VIAL IVP (07:26)
[2025-10-05] MEDS: Ketorolac 15 MG/ML VIAL IVP (07:40)
[2025-10-05] MEDS: ACETAMINOPHEN 1,000 MG/100 ML BAG 400 MG IVPB (07:41)
--- NOTE | 2025-10-05 07:55 | DI.VRAD_ITS ---
PROCEDURE INFORMATION: Exam: CT Abdomen And Pelvis With Contrast Exam date and time: 10/05/2025 7:07 AM Age: 35 years old Clinical indication: Other: Epigastric pain and tenderness, n/v/d; Hystertomy and tubal TECHNIQUE: Imaging protocol: Computed tomography of the abdomen and pelvis with contrast. Contrast material: OMNIPAQUE 350; Contrast volume: 75 ml; Contrast route: INTRAVENOUS (IV); COMPARISON: CT ABDOMEN PELVIS W 04/08/2024 2:29 PM FINDINGS: Liver: 18.6 cm longitudinal dimension of the liver, consistent with hepatomegaly (previously 19.5 cm). Focal fatty infiltration of the liver is seen adjacent to the falciform ligament. Otherwise unremarkable liver. Gallbladder and biliary ducts: The gallbladder is surgically absent. No biliary dilatation. Pancreas: Normal. No ductal dilation. Spleen: Normal. No splenomegaly. Adrenal glands: Normal. No mass. Kidneys and ureters: Normal. No hydronephrosis. Stomach and bowel: Evaluation of bowel is somewhat limited due to the lack of oral contrast.Ascending and transverse colon decompressed, further limiting evaluation. Interval development of low-attenuation wall thickening of the gastric antrum with associated mucosal hyperenhancement (e.g. Image 36/series 8). Prominence of the wall of the ascending and transverse colon may be related to underdistention. No pericolonic fat stranding. No other gross bowel abnormalities. No bowel obstruction. Appendix: Normal appendix. Intraperitoneal space: Unremarkable. No free air. No significant fluid collection. Vasculature: Unremarkable. No abdominal aortic aneurysm. Lymph nodes: Unremarkable. No enlarged lymph nodes. Urinary bladder: Unremarkable as visualized. Reproductive: Uterus surgically absent. Grossly unremarkable ovaries. Bones/joints: Sclerosis of the bones abutting the right sacroiliac joint, consistent with osteitis condensans ilii. Soft tissues: Unremarkable. IMPRESSION: 1. Findings concerning for gastritis. If the patient has symptoms referable to this finding, consider GI consult. 2. Prominence of the wall of the ascending and transverse colon may be related to underdistention. Colitis should be excluded clinically. 3. Hepatomegaly. Correlate with laboratory data. Dictated and Authenticated by: Martina Bryson MD. Orderin Sanjuana Brown MD
[2025-10-05 08:11] VITALS: BP 102/62; PULSE 63; TEMP 36.9; O2SAT 98
[2025-10-05 08:17] LABS: Glucose Negative (Negative)
--- NOTE | 2025-10-05 08:25 | W.EDPROG ---
Date of service: 10/05/25 Time of Service: 08:25 Medical Decision Making Patient was signed out to me by my colleague Dr. Casarez, pending CT scan. CT scan results have returned shows evidence concerning for gastritis with thickening of the stomach. No other acute process. Clinically she does not demonstrate evidence of colitis with any lower abdominal pain or discomfort. Patient admits that she has a history of gastric thickening in the past, and was prescribed famotidine and Protonix before, but has not taken it because of the cost of the medication. I did discuss with her the importance of taking the medication for prevention of perforation or ulcer. Or cancer. I did discuss the importance of outpatient EGD with her child care center administrator which she understands. She we will continue with a bland diet. I did recommend further discussion with her pharmacist for potential cost saving opportunities for prescription medication. Patient otherwise stable for discharge. Repeat exam shows no signs of an acute surgical abdomen. Discussed red flags for which to return. I have extensively reviewed the treatment plan and discharge instructions with the patient. I have addressed all patient concerns at this time. The patient was made aware of what symptoms to monitor for that would warrant a return to the emergency department. Discussed the plan with the patient, they demonstrate verbal understanding and agreement with our assessment and plan at this time. The documentation in this chart was dictated using [employer] dictation software. Please excuse any dictation errors. FINDINGS: Liver: 18.6 cm longitudinal dimension of the liver, consistent with hepatomegaly (previously 19.5 cm). Focal fatty infiltration of the liver is seen adjacent to the falciform ligament. Otherwise unremarkable liver. Gallbladder and biliary ducts: The gallbladder is surgically absent. No biliary dilatation. Pancreas: Normal. No ductal dilation. Spleen: Normal. No splenomegaly. Adrenal glands: Normal. No mass. Kidneys and ureters: Normal. No hydronephrosis. Stomach and bowel: Evaluation of bowel is somewhat limited due to the lack of oral contrast.Ascending and transverse colon decompressed, further limiting evaluation. Interval development of low-attenuation wall thickening of the gastric antrum with associated mucosal hyperenhancement (e.g. Image 36/series 8). Prominence of the wall of the ascending and transverse colon may be related to underdistention. No pericolonic fat stranding. No other gross bowel abnormalities. No bowel obstruction. Appendix: Normal appendix. Intraperitoneal space: Unremarkable. No free air. No significant fluid collection. Vasculature: Unremarkable. No abdominal aortic aneurysm. Lymph nodes: Unremarkable. No enlarged lymph nodes. Urinary bladder: Unremarkable as visualized. Reproductive: Uterus surgically absent. Grossly unremarkable ovaries. Bones/joints: Sclerosis of the bones abutting the right sacroiliac joint, consistent with osteitis condensans ilii. Soft tissues: Unremarkable. IMPRESSION: 1. Findings concerning for gastritis. If the patient has symptoms referable to this finding, consider GI consult. 2. Prominence of the wall of the ascending and transverse colon may be related to underdistention. Colitis should be excluded clinically. 3. Hepatomegaly. Correlate with laboratory data. Thank you for allowing us to participate in the care of your patient. Dictated and Authenticated by: Martina Bryson MD 10/05/2025 7:55 AM Eastern Time ([place] & [place]) Quality:SDOH Health Related Social Needs: Health related social needs house/econ circumstance Health related social needs details LACK OF INSURANCE- UNABLE TO AFFORD PERSCRIPTIONS Discharge Plan Disposition Patient Disposition: Home Condition: Good Discharge Details Clinical Impression: Acute epigastric pain, Vomiting, Gastric wall thickening Primary Care Provider: Rober Kate ED Provider: Jens Cross Home Meds and New Rx's Prescriptions: New sucralfate [Carafate] 1 gram tablet 1 g PO BID Qty: 60 0RF pantoprazole [Protonix] 40 mg tablet,delayed release (DR/EC) 40 mg PO DAILY Qty: 60 0RF famotidine 40 mg tablet 40 mg PO DAILY Qty: 60 0RF Discontinued famotidine 20 mg tablet 20 mg PO BID PRN (Reason: reflux) Qty: 180 3RF omeprazole 40 mg capsule,delayed release(DR/EC) 40 mg PO QPM Rx Instructions: Take one 40 mg capsule 30 minutes before the evening meal No Action albuterol sulfate [Ventolin HFA] 90 mcg/actuation HFA aerosol inhaler 2 puff inhalation QID PRN (Reason: shortness of breath or wheezing) Qty: 8.5 3RF lamotrigine 100 mg tablet 100 mg PO DAILY Qty: 90 3RF cyclobenzaprine 5 mg tablet 5 mg PO TID PRN (Reason: muscle spasm) Qty: 30 3RF gabapentin 100 mg capsule See Rx Instructions PO TID Qty: 360 3RF Rx Instructions: t1 tab QAM, Qnoon, t2 tabs QHS orally three times a day; colestipol 1 gram tablet 2 g PO BID Discharge Instructions Instructions: Gastritis ED Additional Instructions: At this time your imaging has returned and it shows thickening of your stomach wall. As we discussed together this is concerning for gastritis. If this continues to worsen it may cause a perforation, or long-term may cause cancer. Please take the Protonix and famotidine as prescribed as well as the Carafate. Stick with a bland diet, and avoid spicy foods, tomato-based products or citrus foods. Please follow-up closely with your child care center administrator for scheduling of an EGD. If you notice any worsening of your symptoms, or any new symptoms such as vomiting, diarrhea, fever, chills, shortness of breath, chest pain, numbness, weakness, or fainting , please return immediately to the emergency department for reevaluation. Please follow up with your primary care provider as soon as possible for reassessment and reevaluation. As always, it was a pleasure participating in your medical care today. Stand Alone Forms: Portal Information, Work Release Referrals: Rober Kate DO [Primary Care Provider, Medicine]
[2025-10-05 08:26] LABS: C & S Indicated? No; WBC 0-2 HPF (0-5)
== END 2025-10-05 08:35 | disposition home or self-care (01) ==
PROVIDERS: Student in an Organized Health Care Education/Training Program; Emergency Provider Student in an Organized Health Care Education/Training Program; PCP Family Medicine
DX: R10.13 Epigastric pain (principal); R11.2 Nausea with vomiting, unspecified; K31.89 Other diseases of stomach and duodenum; R19.7 Diarrhea, unspecified; Z59.89 Other problems related to housing and economic circumstances; Z59.71 Insufficient health insurance coverage
CPT/HCPCS: 99284; 99285; 96374; 96375; 00123; 80053; 83690; 93005; 74177; 81003; 81015; 83605; 83735; 84484; 84703; 85025; 93010; J0131; J1885; J2470; J3490